=== PATIENT | male | born 1985 | race Caucasian/White ===

== ENCOUNTER 2018-09-08 20:35 | Emergency (ER) | payer MEDICAID ==
[~2018-09-08] VITALS: Ht 193 cm; Wt 127.0 kg
== END 2018-09-08 22:26 | disposition home or self-care (01) ==
LOC: ER 20:35
DX: J11.1 Influenza due to unidentified influenza virus with other respiratory manifestations (principal)
CPT/HCPCS: 71046; 96372; 99283-25; J1885